=== PATIENT | female | born 2000 | race Caucasian/White ===

== ENCOUNTER 2025-08-19 13:17 | Emergency (ER) | payer MEDICAID ==
[~2025-08-19] VITALS: Ht 167.6 cm; Wt 68.0 kg
[2025-08-19 13:24] VITALS: O2SAT 99
[2025-08-19] MEDS: ACETAMINOPHEN 325MG TABLET PO ONE (14:14)
[2025-08-19] MEDS ORDERED: IBUP-1523 MT (16:26)
[2025-08-19] MEDS ORDERED: TOPUD MT (16:26)
[2025-08-19] MEDS ORDERED: ONDA4TAB50 MT (16:28)
[2025-08-19] MEDS: LIDOCAINE HCL 1% 20ML VIAL INFIL ONE (17:12)
[2025-08-19 18:14] VITALS: BP 110/59; PULSE 74; RESP 16; TEMP 37; O2SAT 100
== END 2025-08-19 18:19 | disposition home or self-care (01) ==
LOC: ER 13:35
DX: S01.112A Laceration without foreign body of left eyelid and periocular area, initial encounter (principal); N89.8 Other specified noninflammatory disorders of vagina; Z79.899 Other long term (current) drug therapy; Y04.0XXA Assault by unarmed brawl or fight, initial encounter; Y93.89 Activity, other specified; Y92.89 Other specified places as the place of occurrence of the external cause; Y99.8 Other external cause status
CPT/HCPCS: 99284; 70486; 84702; 36415; 73030; 73060; 73090; 12013; J2003